=== PATIENT | female | born 1990 | race Caucasian/White ===

== ENCOUNTER 2024-09-20 02:47 | Emergency (ER) | payer MEDICAID, SELFPAY ==
[2024-09-20 02:51] VITALS: BMI 29.9
[2024-09-20 03:10] VITALS: BP 137/92; PULSE 101; RESP 16; TEMP 36.7; O2SAT 99
[2024-09-20] MEDS: TETRACAINE PF OP SOL 0.5% 4 ML DRPETTE 1 DROP RIGHT EYE (03:30)
[2024-09-20] MEDS: FLUORESCEIN SOD 1 MG STRP RIGHT EYE (03:30)
[2024-09-20] MEDS: Erythromycin Op Oint 0.5% 1 GM PACKET RIGHT EYE (03:49)
--- NOTE | 2024-09-20 03:49 | EDNOTE_ITS ---
ED Eye Problem RME/HPI General Chief complaint: Eye Problems Stated complaint: R EYE FB/INJURY Time Seen by Provider: 09/20/24 03:07 Arrival date/time: 09/20/24 02:47 This is a case of 33-year-old female came in in the emergency room due to right eye irritation history of present illness started 1 hour prior to arrival in the emergency room patient was grinding her acrylic nail when accidentally a piece of the nail went to her right eye sustaining a right eye irritation patient denies any blurring of vision or headache Limitations: no limitations Related Data Previous Rx's ?Medication ?Instructions ?Recorded ibuprofen 800 mg tablet 800 mg PO Q8H pain #30 tabs 11/26/18 ofloxacin 0.3 % eye drops (Ocuflox) 1 drp ophthalmic ( eye) QID 10 days 09/20/24 #10 mL Allergies Allergy/AdvReac Type Severity Reaction Status Date / Time cephalexin (From Keflex) Allergy Severe Anaphylaxis Verified 09/20/24 03:00 Penicillins Allergy Severe throat Verified 09/20/24 03:00 closes cat dander Allergy Unknown Verified 09/20/24 03:00 Review of Systems Constitutional Constitutional: Reports system reviewed and no additional complaints, except as documented and Reports as per HPI Eyes Eyes: Reports system reviewed and no additional complaints, except as documented, Reports as per HPI, Denies blurry vision, Denies change in vision, Denies decreased night vision, Denies diplopia, Denies eye discharge, Denies dry eyes, Denies exophthalmos, Denies floaters, Reports irritation, Denies itchy eyes, Denies loss of peripheral vision, Denies loss of vision, Denies other visual disturbances, Denies eye pain, Denies photophobia, Denies requires cor rective lenses, Denies seeing flashes, Denies spots in vision and Denies tunnel vision ENT Ears, Nose, Mouth, and Throat: Reports system reviewed and no additional complaints, except as documented and Reports as per HPI Cardiovascular Cardiovascular: Reports system reviewed and no additional complaints, except as documented and Reports as per HPI Respiratory Respiratory: Reports system reviewed and no additional complaints, except as documented and Reports as per HPI Gastrointestinal Gastrointestinal: Reports system reviewed and no additional complaints, except as documented and Reports as per HPI Genitourinary Genitourinary: Reports system reviewed and no additional complaints, except as documented and Reports as per HPI Musculoskeletal Musculoskeletal: Reports system reviewed and no additional complaints, except as documented and Reports as per HPI Neurologic Neurologic: Reports system reviewed and no additional complaints, except as documented, Reports as per HPI and Denies loss of vision Allergic/Immunologic Allergic/Immunologic: Denies itchy eyes Past Medical History Past Medical History NEUROLOGIC: Negative Neurological Disorders or Seizures CARDIAC: Negative Cardiac Disorders or Congestive Heart Failure RESPIRATORY: Negative Chronic Obstructive Pulmonary Disease (COPD) GASTROINTESTINAL: Negative Gastrointestinal Disorders, Hepatitis or Colorectal Cancer GENITOURINARY: Negative Genitourinary Disorders, Renal Disease or Prostate Cancer REPRODUCTIVE: Negative Breast Cancer, Pelvic Inflammatory Disease or Testicular Cancer MUSCULOSKELETAL: Negative Musculoskeletal Disorders or Bone Cancer ENDOCRINE: Negative Endocrine Disorders, Diabetes Mellitus Type 1 or Diabetes Mellitus Type 2 HEMATOLOGIC: Negative Blood Disorders PSYCHO/SOCIAL: Positive Recreational Drug Use OTHER HISTORY: Positive Chicken Pox (SHINGLES); Negative Autoimmune Disease, Blood Transfusions, Blood Transfusion Reaction, Anesthesia Reactions, Organ Transplant, Chemotherapy, Radiation Therapy, Hyperbaric Therapy, MRSA, VRSA, Vancomycin-Resistant Enterococci, Human Immunodeficiency Virus (HIV), Measles, Mumps, Rubella (Tajik Measles), Pertussis, Clostridium Difficile, Breast Cancer, Cervical Cancer, Colorectal Cancer, Lung Cancer, Ovarian Cancer, Prostate Cancer or Testicular Cancer Family History FAMILY HISTORY: Positive Family Cardiac Disorders (FATHER -AFIB); Negative Family Psychiatric Problems, Family Respiratory Disorders, Family Gastrointestinal Problems, Family Cancer, Family Surgery or Family Anesthesia Reaction Surgical History SURGICAL: Negative Cardiac Surgery, Endocrine Surgery, Abdominal Surgery, Joint Replacement, Neurologic Surgery, Section or Organ Transplant Social History SMOKING STATUS: Current some day smoker ED Exam General Limitations: Present no limitations General appearance: Present alert, in no apparent distress and other (Patient is awake alert oriented not in distress nontoxic looking well-hydrated well- nourished) Head Head exam: Present atraumatic, normocephalic and normal inspection Eye Eye exam: Present normal appearance, PERRL, EOMI and other (perrl eom intact no pappiledema no hyphema noted conjunctival redness ) Expanded Eye Exam Slit lamp exam: performed (Tetracaine was applied fluorescein strip was placed on the right eye noted a stain on the 9 o'clock position suggestive of corneal abrasion noted foreign body also on 12 o'clock position unable to remove no co rneal ulcer no corneal edema negative Glenn sign patient tolerated well the procedure irri) Eyelids: left: normal inspection and right: erythema Pupils: Bilateral: regular, round and reactive Sclera/Conjunctival: left: normal inspection and right: foreign body ENT ENT exam: Present normal exam, normal oropharynx and mucous membranes moist Neck Neck exam: Present normal inspection, full ROM and trachea midline Chest Chest inspection: Present normal inspection and symmetric chest wall rise Respiratory Respiratory exam: Present normal lung sounds bilaterally; Absent respiratory distress, wheezes, stridor, accessory muscle use or prolonged expiratory phase Cardiovascular Cardiovascular exam: Present regular rate, normal rhythm and normal heart sounds; Absent bradycardia, tachycardia, irregular rhythm, systolic murmur or diastolic murmur Abdominal Exam Abdominal exam: Present soft and normal bowel sounds; Absent distention, tenderness, guarding, rebound, rigidity, diminished bowel sounds, hyperactive bowel sounds or hypoactive bowel sounds Extremities Exam Extremities exam: Present normal inspection and full ROM Back Exam Back exam: Present normal inspection and full ROM Neurological Exam Neurological exam: Present alert, oriented X3, CN II-XII intact, normal gait and reflexes normal; Absent motor sensory deficit Psychiatric Psychiatric exam: Present normal affect and normal mood Skin Skin exam: Present warm, dry, intact and normal color Course Quality Measures none Orders Category Date Time Status Visual Acuity NOW Care 09/20/24 03:25 Active Erythromycin Op Oint 0.5% Med 09/20/24 03:43 Discontinued 1 gm RIGHT EYE X1 ONE Fluorescein Sodium [Bio-Nallely] Med 09/20/24 03:23 Discontinued 1 mg RIGHT EYE X1 ONE TETRACAINE Op Candice 0.5% [Pontocaine Op Candice 0.5%] Med 09/20/24 03:23 Discontinued 1 drop RIGHT EYE X1 ONE Vital Signs Vital signs: Vital Signs Temperature 98.1 F 09/20/24 03:10 Pulse Rate 101 H 09/20/24 03:10 Respiratory Rate 16 09/20/24 03:10 Blood Pressure 137/92 H 09/20/24 03:10 Pulse Oximetry (%) 99 09/20/24 03:10 Oxygen Delivery Method Room Air 09/20/24 03:10 Patient is afebrile not tachycardic not tachypneic patient oxygen saturation is 99% BP stable normal Eye MDM Narrative MDM Narrative:: This is a case of 33-year-old female came in in the emergency room due to right eye irritation history of present illness started 1 hour prior to arrival in the emergency room patient was grinding her acrylic nail when accidentally a piece of the nail went to her right eye sustaining a right eye irritation patient denies any blurring of vision or headache physical examination patient is awake alert oriented not in distress nontoxic looking neurological exam is normal and unremarkable left eye is normal right eye PERRL EOM intact conjunctival redness but no discharge both eyelid upper and lower were normal no foreign body slit- lamp procedure was performed tetracaine was applied Krucz-G-Dkawi was also applied to the right eye noted a corneal abrasion on the right eye on 9 o'clock position with foreign body on 12 o'clock position unable to remove no corneal ulcer no corneal edema negative Glenn sign patient tolerated well the procedure irrigate with 40 cc of NS to remove the strip on the right eye apply erythromycin drops and covered with eye patch I have a long discussion with the patient regarding the corneal abrasion and foreign body the importance to see the public address system installer today or tomorrow for further evaluation and treatment was discussed with the patient the risks of not seeing the specialist was also advised and discussed especially the risks of losing the eyesight tetanus shot was up-to-date on the patient patient was prescribed with ofloxacin to prevent infection no scratching of the eye no eye stain is also advised at this point patient is well-informed for any worsening symptoms or any emergent concerns such as blurring of vision she will return in the emergency room immediately or call 911 she will also follow-up with PCP in 2 days for evaluation Patient was discharged with comfortable condition walking with stable gait. Patient verbalized no further complains explained diagnosis and answered patient question. Patient is comfortable with the proposed management plan including the need to follow up with his/her primary care physician and any specialist if applicable Discussed patient for any urgent condition or worsening sx, He/She needed to go to emergency room immediately or call 911. Patient acknowledge the responsibility to follow up as instructed and to monitor her/his symptoms. For any persistence of the symptoms for more than 3-5 days return precaution advised. Discussed the result of the test and was given printed discharge instruction Patient data External records reviewed:: [facility] previous records Clinical information provided by:: patient Social determinants that could affect healthcare access:: none Patient has the following chronic illnesses:: None How is presenting disease/condition affected by chronic disease/condition?: no chronic disease Evaluation data The following diagnostics were reviewed and interpreted by me:: other (specify) (None) Lab and/or radiology exams considered but not ordered:: None Interpretation Summary: None Medications / Prescriptions Medications or Prescriptions considered but not ordered:: Given Medication administrations:: Medication Administration History Discontinued Medications Erythromycin (Erythromycin Op Oint 0.5% 1 Gm Packet) 1 gm RIGHT EYE X1 ONE Stop: 09/20/24 03:44 Fluorescein Sodium (Fluorescein Sod 1 Mg Strp) 1 mg RIGHT EYE X1 ONE Stop: 09/20/24 03:24 Last Admin: 09/20/24 03:30 Dose: 1 mg Documented By: VICKY Tetracaine HCl (Tetracaine Pf Op Candice 0.5% 4 Ml Drpette) 1 drop RIGHT EYE X1 ONE Stop: 09/20/24 03:24 Last Admin: 09/20/24 03:30 Dose: 1 drop Documented By: VICKY Comments: GIVEN TO PROVIDER TEMPLE Given Consultations Consultation(s) initiated? (list below): No Diagnosis Eye Problem Differential Diagnosis: corneal abrasion, conjunctivitis, periorbital cellulitis and subconjunctival hemorrhage Most likely diagnosis given after review of the tests above:: Corneal abrasion foreign body on the right cornea Admission Indicated Admission indicated?: not indicated Explain why admission is indicated or not indicated:: Not indicated Admission Request Was there a request for admission?: No Admission Attestation Admission request attestation: Not indicated Disposition Plan Disposition Plan: Discharge Discharge Attestation Discharge Attestation: The patient and all family members were given an opportunity to ask questions and understood the discharge instructions. Discharge instructions specifically effects, indications for sooner follow up or return to the emergency department, and the expected course of current diagnosis. Patient condition: Stable Discharge Plan Plan Patient Disposition: HOME (Self Care) Patient condition on transfer: Stable Prescriptions/Referrals Prescriptions/Med Rec: New ofloxacin [Ocuflox] 0.3 % drops 1 drp ophthalmic (eye) QID 10 Days Qty: 10 0RF No Action ibuprofen 800 mg tablet 800 mg PO Q8H Qty: 30 0RF Rx Instructions: with food or milk Referrals: Dionicio Arizmendi MD [Referring Provider] - 09/20/24 (For further evaluation and treatment of corneal abrasion and foreign body right eye) Problem List Clinical Impression: Abrasion of cornea, right, Foreign body of right eye Patient/Caregiver Discharge Instructions Education Materials: ED Corneal Abrasion Additional Instructions: Follow-up with your primary care physician in 2 days for reevaluation it is very important to see public address system installer today or tomorrow for further evaluation and treatment of corneal abrasion right eye and foreign body cornea worsening symptoms or any emergent concerns such as headache blurring of vision call 911 or go to the nearest emergency room avoid eyestrain avoid driving avoid watching TV do not scratch your eye keep the eye patch until cleared by your primary care physician apply the medication as directed Print Language: Yoruba Stand Alone Forms: Indira Award Info., Patient Portal Info Letter PA/CREDIT OR LOANS OFFICER Supervising Physician PA/CREDIT OR LOANS OFFICER Supervising Physician: dr day
== END 2024-09-20 04:02 | disposition home or self-care (01) ==
PROVIDERS: Emergency Provider Emergency Medicine
DX: T15.01XA Foreign body in cornea, right eye, initial encounter (principal); W44.8XXA Other foreign body entering into or through a natural orifice, initial encounter; Y93.89 Activity, other specified
CPT/HCPCS: 99283; A9270